=== PATIENT | female | born 1990 | race Caucasian/White ===

== ENCOUNTER 2025-03-07 22:22 | Observation (INO) | payer OTHER, SELFPAY ==
--- OUTSIDE RECORDS SUMMARY | 2024-01-30 02:20 | XMS_ITS ---
Author Organization [facility] Address [address] [place] [phone] Care Team Providers Care Director Of Manufacturing Operations Name Role Phone Talib Iglesias Primary Care Provider PrelutskyAngel Unavailable [phone] REASON FOR VISIT 2 month f/u Social History Sex Assigned At : Social History Observation Description Sex Assigned At Female Encounters Encounter Location Date Provider Diagnosis [address] [phone] 01/30/2024 Talib Iglesias Plan Of Treatment No Information Progress Notes * Muriel PETERS EDOB: [birth year] (34 yo F)Acc No.[id number]:01/30/2024 Progress Notes Patient: Muriel BANDA Provider: Milady Iglesias MD :1990 A ge:33 Y S ex:Female Date:01/30/2024 Address:[address] [place] [id number] Subjective: * Chief Complaints: * 1 . 2 month f/u. * Medical History: * Implants: Objective: * Vitals: Assessment: Plan: * Treatment: * Billing Information: * Visit Code: * Procedure Codes: Care Plan Details* * Electronic signature of Manish Iglesias M.D. on 03/08/2025 at 01:42 AM FAMILY INTERVENTION SPECIALIST Sign off status: Pending * Provider: Milady Iglesias MD Date: Generated for Jared barksdale/Zulema/Juanito on: 1 05/09/2024 01:42 AM FAMILY INTERVENTION SPECIALIST
--- NOTE | ~2025-03-07 | XR_ITS ---
Examination: XR chest 2V Clinical History: CHEST PAIN Comparison: None Technique: PA and Lateral Findings: Cardiomediastinal silhouette normal size and configuration. Lungs clear. No acute bony abnormality. IMPRESSION: 1. No acute cardiopulmonary findings. Reviewed, dictated and finalized at location R. ACTER ACTRESS
--- OUTSIDE RECORDS SUMMARY | 2025-03-07 22:25 | XMS_ITS | Encounter Summary ---
Author Organization [facility] Health Address [address] [place] [address] Care Team Providers Care Nurses' Association Executive Director Name Role Phone None, Physician Primary Care Provider Unavailabl e Reason for Visit * Reason Onset Date Comments Appointment 05/26/2022 Encounter Details Date Type Department Care Team (Late st Contact Info) Description 05/26/2022 Telephone [facility] [address] [place] [address] Catrachita Lee MD [address] [place], [place] [phone] Appointment Social History Tobacco Use Types Packs/Day Years Used Date Smoking Tobacco: Never Smokeless Tobacco: Never Alcohol Use Standard Drinks/Week Comments Not Currently 1 (1 standard drink = 0.6 oz pure alcohol) 1/2 glass wine twice during AUDIT-C Answer Date Recorded Q1: How often do you have a drink containing alc ohol? Never 05/24/2020 Average Number of Drinks Not on file 021 Frequency of Binge Drinking Not on file 05/04 Overall Financial Resource Strain (CARDIA) Answe r Date Recorded How hard is it for you to pa y for the very basics like food, housing, medical care, and heating? Not hard at all 05/22/2022 [facility] - Occupational Stress Questionnaire Answer Date Recorded Do you feel stress - tense, restless, nervous, or anxious, or unable to sleep at night because your mind is troubled all the time - these days? Not at all 05/22/2022 Hunger Vital Sign Answer Date Recorded Within the past 12 months, y ou worried that your food would run out before you got the money to buy more. Never true 05/22/19 Within the past 12 months, t he food you bought just didn't last and you didn't have money to get more. Never true 05/22/2022 PRAPARE - Transportation Answer Date Re corded In the past 12 months, has l ack of transportation kept you from medical appointments or from getting medications? No 05/04 In the past 12 months, has l ack of transportation kept you from meetings, work, or from getting things needed for daily living? No 05/22/2022 Housing Stability Vital Sign Answer Jesse e Recorded In the last 12 months, was t here a time when you were not able to pay the mortgage or rent on time? No 05/22/2022 In the last 12 months, how many places have you lived? 1 05/22/2022 In the last 12 months, was t here a time when you did not have a steady place to sleep or slept in a halfway (including now)? No 05/22/2022 [place] Depression Scale Answer Date Recorded [place] Depression Scale Total 6 05/24/2022 The thought of harming myself has occurred to me . Never 05/24/2022 Comments No Sex and Gender Information Value Date Recorded Sex Assigned at Not on file Legal Sex Female 5:39 AM CIRCULATOR Gender Identity Not on file Sexual Orientation Not on file COVID-19 Exposure Response Date Recorded In the last 10 days, have yo u been in contact with someone who was confirmed or suspected to have Coronavirus/COVID-19? No / Unsure 05/19/2022 4:23 PM CIRCULATOR documented as of this encounter Functional Status * Is person deaf or have serious hearing difficulty? Answer Date of Assessment Author No 05/22/2022 3:09 PM CIRCULATOR Pia Ledesma RN * Is person blind or have serious difficulty seeing? Answer Date of Assessment Author No 05/22/2022 3:09 PM Pia Meier RN * Does person have serious difficulty walking/climbing stairs? Answer Date of Assessment Author No 05/22/2022 3:09 PM Pia Meier RN * Does person have difficulty dressing/bathing? Answer Date of Assessment Author No 05/22/2022 3:09 PM Pia Meier RN * Does person have difficulty doing errands alone? Answer Date of Assessment Author No 05/22/2022 3:09 PM Pia Meier RN documented as of this encounter Mental Status * Does person have difficulty concentrating/remembering/making decisions? Answer Entry Date Author No 05/22/2022 3:09 PM Pia Meier RN documented in this encounter Miscellaneous Notes * Telephone Encounter - Renetta Zamudio RN - 05/26/2022 10:12 AM CIRCULATOR RN returned patient call. Patient needing to schedule PP appointment. RN scheduled patient for apptwith Dr. Lee on 06/29 @ 3:45. 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 Passing a few small clots, not bleeding through pads. Patient states that it looked like her bleeding had slowed down, but now it is more like a period. Denies increase in cramping except with nursing. RN advised to monitor for now, since bleeding can come and go during period. Bleeding precautions reviewed. Patient will call or message in with any further concerns. ULATOR * Telephone Encounter - Arlene Garcia - 05/26/2022 9:49 AM CST Pt calling to make post care but nothing is noted on time frame for appt please advise Pt has additional questions about blood clots and stated that bleeding has increased PT CB# [phone] ULATOR documented in this encounter Plan of Treatment Not on file documented as of this encounter Visit Diagnoses Not on filedocumented in this encounter Care Teams Nurses' Association Executive Director Relationship Specialty Start Date End Date None, Physician [address] [place] [id number] PCP - General 09/10/23 documented as of this encounter
--- OUTSIDE RECORDS SUMMARY | 2025-03-07 22:25 | XMS_ITS | Encounter Summary ---
Author Organization [facility] Health Address [facility] [facility] [place] [address] Care Team Providers Care Tank Hoop Bender Name Role Phone None, Physician Primary Care Provider Unavailabl e Reason for Visit * Reason Onset Date Comments Appointment 09/02/2020 Encounter Details Date Type Department Care Team (Late st Contact Info) Description 09/02/2020 Telephone [facility] [address] [place] [address] Catrachita Lee MD [address] [place] [phone] Appointment Social History Tobacco Use Types Packs/Day Years Used Date Smoking Tobacco: Never Smokeless Tobacco: Never Alcohol Use Standard Drinks/Week Comments Yes 1 (1 standard drink = 0.6 oz pur e alcohol) AUDIT-C Answer Date Recorded Q1: How often do you have a drink containing alc ohol? Never 05/24/2020 Average Number of Drinks Not on file 021 Frequency of Binge Drinking Not on file 05/04 Comments No Sex and Gender Information Value Date Recorded Sex Assigned at Not on file Legal Sex Female 5:39 AM HOME CHILD CARE PROVIDER Gender Identity Not on file Sexual Orientation Not on file documented as of this encounter Functional Status * Is person deaf or have serious hearing difficulty? Answer Date of Assessment Author No 08/25/2020:04 AM CDT Kenna Jones RN * Is person blind or have serious difficulty seeing? Answer Date of Assessment Author No 08/25/2020 2:04 AM CDT Kenna Jones RN * Does person have serious difficulty walking/climbing stairs? Answer Date of Assessment Author No 08/25/2020 2:04 AM ELT Kenna Jones RN * Does person have difficulty dressing/bathing? Answer Date of Assessment Author No 08/25/2020 2:04 AM CDT Kenna Jones RN * Does person have difficulty doing errands alone? Answer Date of Assessment Author No 08/25/2020 2:04 AM ELT Kenna Jones RN documented as of this encounter Mental Status * Does person have difficulty concentrating/remembering/making decisions? Answer Entry Date Author No 08/25/2020 2:04 AM Kenna Saul RN documented in this encounter Miscellaneous Notes * Telephone Encounter - Loan Rodriguez - 09/02/2020 8:26 AM CDT PT delivered on 08.25.20 and needs to get her [address] Lee. PT also said she got new insurance and will call to update her information when she has it CB# [phone] documented in this encounter Plan of Treatment Not on file documented as of this encounter Visit Diagnoses Not on filedocumented in this encounter Care Teams Tank Hoop Bender Relationship Specialty Start Date End Date None, Physician [address] [place] [address] PCP - General 09/10/23 documented as of this encounter
--- OUTSIDE RECORDS SUMMARY | 2025-03-07 22:25 | XMS_ITS | Clinical Summary ---
Author Organization [facility] Address [address] [place] [address] Care Team Providers Care Egg Pasteurizer Name Role Phone None, Physician Primary Care Provider Unavailabl e Source Comments [facility],non-owned Affiliates and Associated Physician Practices is amultiple site organization consisting of ambulatory clinics and hospital sitesin [place], [place], [place] and [place]. This disclosure is being madepursuant to the Care Everywhere program and may not contain all information available regarding this patient. Last updated 17.[facility] Allergies No known active allergies Medications * Be aware that medications may not be up to date on this document. Alwaysverify current medications with the patient. Vit-Fe Fumarate-FA ( VITAMIN) 27-0.8 MG tablet Take 1 (one) tablet by mouth once daily Active multivitamin daily tablet Take 1 (one) tablet by mouth daily with food Active Datto-3 Fatty Acids (fish oil) 500 MG capsule Take 500 (five hundred) mg by mouth once daily Active VITAMIN D, CHOLECALCIFEROL, PO Take 1 tablet by mouth once daily Active MAGNESIUM PO Take 1 tablet by mouth once daily Active Active Problems Problem Noted Date Diagnosed Date Well woman exam with routine gynecological exam 11/11/2024 Vaginal discharge 10/21/2024 Erosion of cervix 10/21/2024 Allergic rhinitis due to allergen 2023 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 Discussed treatment options including starting medication, pursuing therapy, or doing a combination of the two. Reviewed side effects, risks, benefits of SSRI. Would consider Fluoxetine. Discussed current data regarding risk of SSRI use during . We discussed the management of anxiety/depression during , with an emphasis on optimizing maternal well being as untreated anxiety/depression can have devastating consequences. We discussed the weak association between SSRIs and defects and the possibility of deferring treatment in the first trimester. We reviewed the risk of abstinence syndrome but emphasized that this syndrome can be easily managed by the pediatricians, and no terminal make up operator effects have ever been demonstrated. We also discussed a recent publication demonstrating a potential association between maternal use of SSRIs in late and the risk of persistent pulmonary hypertension of the (PPHN). We reviewed how studies indicated that there may be a small increase in the risk of PPHN among those who use SSRIs in late , however about 99% of women exposed to one of these medications in late will deliver an unaffected by PPHN. We discussed that the absolute risks of continuing SSRIs in are small but present and need to be weighed against the potential maternal benefits. Availability of alternative treatment like psychotherapy should also be taken into consideration. Discussed risk of exposure to drug in breast milk. Available data on the use of fluoxetine during have been encouraging and suggest that the amounts of drug to which the nursing is exposed is low and that significant complications related to exposure to antidepressants in breast milk appear to be rare. Typically very low or non-detectable levels of drug have been detected in the infant serum, and one recent report indicates that exposure to medication in breast milk does not result in clinically significant blockade of serotonin (5- HT) reuptake in infants. At this time she is not interested in medication and would prefer to pursue therapy first. Discussed adding medication at later date, should symptoms worsen. She was given list of in-network providers who provide therapy targeting disordered eating. Syncope and collapse 04/28/2022 Chest pain, unspecified type 01/27/2022 Screening for malignant neoplasm of cervix 10/07 Overview (10/12/2020): 03/19 - WNL 10/20 nilm neg hpv GERD (gastroesophageal reflux disease) Resolved Problems Problem Noted Date Diagnosed Date Resolved Date Trauma during 05/01/202208/31 Supervision of other normal , antepartum 10/27/2021 2023 Overview (05/01/2022): gbs neg gct 84, hgb 11, hiv neg syph neg O+ antibody screen neg Hgb: 12 plt 169 RPR neg Hep B, C, HIV neg x3 Rubella immune Pap normal Urine cx: neg Genetics: low risk nipt female Flu vaccine: got Tdap vaccine COVID vaccine MOD: PP contraception: Video Clerk: GAGE /pump: female Uterine contractions during 08/25/2020 06/09/2021 please notify Jesus when in labor 05/24/2020 06/09/2021 Overview (07/12/2020): Blood Type: O Rh: positive Antibody Screen: negative Hgb: 12.5 Plt: 184 Rubella Status: Immune HBSAg: negative Hep C: negative RPR: negative HIV: negative Urine Culture: neg Pap: 03/19 - WNL Chlamydia: negative Gonorrhea: negative Genetic Testing: SS - Neg GCT: 84 Tdap: 06/28/2020 GBS: Breast feeding POP (then Nuvaring) Immunizations Immunization Administration Dates Next Due FLU VACCINE TRI IIV3 SPLIT I M (FLUVIRIN) 01/22/2019 INFLUENZA VACCINE, CELL CULT URE, QUADR. (FLUCELVAX QUADRIVALENT; 6MO+) (CCIIV4) 02/02/2020 INFLUENZA VACCINE, QUADR. (F LUZONE; FLULAVAL; FLUARIX; AFLURIA QUADRIVALENT; 6MO+), 0.5 ML (IIV4) 12/01/2021 MMR 05/23/2022(Deferred: Patient Con dition) TDAP (7yrs+) 05/23/2022(),03/02/2022,06/29/19 21 Family History Medical History Relation Name Comments None Known Father CAD (Coronary Artery Disease) Maternal Grandfather Diabetes; unknown type Maternal Grandmother None Known Mother CAD (Coronary Artery Disease) Paternal Grandfather Cancer - Other Paternal Grandmother Endom etrial Cancer - Ovarian Paternal Grandmother Cancer - Breast Neg Hx Cancer - Colon Neg Hx Relation Name Status Comments Father Maternal Grandfather Maternal Grandmother Mother Paternal Grandfather Paternal Grandmother Social History Tobacco Use Types Packs/Day Years [...] and heating? Not hard at all 05/22/2022 [facility] [place] [facility] - Occupational Stress [...] money to buy more. Never true 05/22/19 23 Within the past 12 months, t he [...] place to sleep or slept in a [facility] (including now)? No 05/22/2022 [place] Depression Scale Answer Date Recorded [place] Depression Scale Total 6 05/24/2022 The thought of harming myself has occurred to me . 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 Gender Identity Not on file Sexual Orientation Not on file Last Filed Vital Signs Vital Sign Reading Time Taken Comments Blood Pressure 112/72 11/11/2024 9:50 AM CDT Pulse 72 05/24/2022 7:30 AM PROJECT FACILITATOR Temperature 36.9 C (98.4 F) 10/24/2023 2:10 PM CDT Respiratory Rate 18 05/24/2022 7:30 AM PROJECT FACILITATOR Oxygen Saturation 100% 05/24/2022 7:30 AM PROJECT FACILITATOR Inhaled Oxygen Concentration - - Weight 89.1 kg (196 lb 6.4 oz) 11/11/2024 9:50 A M CDT Height 175.3 cm (5' 9) 11/11/2024 9:50 AM CDT Body Mass Index 29 11/11/2024 9:50 AM CDT Plan of Treatment Health Maintenance Due Date Last Done Comments HEPATITIS B VACCINE (1 of 3 - 19+ 3-dose series) 09/11/2007 HPV VACCINE (1 - 3-dose SCDM series) 09/11/2015 DEPRESSION SCREENING 04/02/2024 COVID-19 VACCINE (3 - 2024-2 6 season) 2024 11/30/2020, 11/09/2020 INFLUENZA VACCINE (#1) 2024 , 02/02/2020, 01/22/2019 PAP with HPV 11/11/2029 11/11/2024, 10/07/2020 DTAP/TDAP/TD VACCINES (3 - T d or Tdap) 03/02/2032 03/02/2022, 06/28/2020 ZOSTER VACCINE (1 of 2) 2038 HEPATITIS C SCREENING Completed 09/30/2021 HIV SCREENING Completed 03/02/2022, 09/30/2021, 06/28/2020 HIB VACCINE Aged Out No longer eligi ble based on patient's age to complete this topic MENINGOCOCCAL (Group B) VACCINE SHARED DECISION-MAKING Aged Out No longer eligible based on patient's age to complete this topic MENINGOCOCCAL GROUPS A/C/Y/W VACCINE Aged Out No longer eligible b ased on patient's age to complete this topic PNEUMOCOCCAL VACCINE Aged Out No long er eligible based on patient's age to complete this topic Procedures Procedure Name Priority Date/Time Associated Diagnosis Comments HPV PANEL Routine 11/11/2024 10:21 AM CDT Well woman exam with routine gynecological exam HIV-1 HIV-2 ANTIBODY + HIV P24 AG PANEL Routine 03/02/2022 Encounter for supervision of other normal in second trimester HIV-1 HIV-2 ANTIGEN/ANTIBODY W RFLX 09/30/2021 from Last 3 Months or Most Recently Relevant to Health Maintenance Results * HPV PANEL (11/11/2024 10:21 AM CDT) High Risk HPV 16 NEGATIVE NEGATIVE 11/13/2024 6:13 AM CDT [facility] High Risk HPV 18 NEGATIVE NEGATIVE 11/13/2024 6:13 AM CDT [facility] High Risk HPV Other NEGATIVE NEGATIVE 11/13/2024 6:13 AM CDT [facility] Pathology/Cytolo gy MISCELLANEOUS SAMPLES / Unknown Collection / Unknown 11/11/2024 10:21 AM CDT 11/12/2024 10:47 AM CDT Narrative [facility] - 11/13/2024 6:13 AM CDT This test performed by Qualitative real-time Polymerase Chain Reaction (PCR). A negative result does not preclude the presence of HPV infection because results depend on adequate specimen collection, absence of inhibitors and sufficient DNA to be detected. Results should be interpreted in conjunction with other available laboratory and clinical data. This test amplifies DNA of HPV16, HPV18 and twelve other high risk types (31, 33, 35, 39, 45, 51, 52, 56, 58, 59, 66, 68) without differentiation. Nida Kimball STUDENT DEVELOPMENT DEAN-DRAFTER APPRENTICE LAB - MICROBIOLOGY ORDERAB LES Final Result [facility] [address] [place] [address], [facility] [phone] * HIV-1 HIV-2 ANTIBODY + HIV P24 AG PANEL (03/02/2022) HIV Screen 4th Generation w Reflex NON-REACT EDUARDO NON-REACT EDUARDO [facility] Comment: HIV-1 antigen and HIV-1/HIV-2 antibodies were not detected. There is no laboratory evidence of HIV infection. PLEASE NOTE: This information has been disclosed to you from records whose confidentiality may be protected by state law. If your state requires such protection, then the state law prohibits you from making any further disclosure of the information without the specific written consent of the person to whom it pertains, or as otherwise permitted by law. A general authorization for the release of medical or other information is NOT sufficient for this purpose. For additional information please refer to http://education.ripplrr inc/faq/NMJ884 (This link is being provided for informational/ educational purposes only.) The performance of this assay has not been clinically validated in patients less than 2 years old. Test Performed at: [facility] [id number] [place] [address] YINA DALE DO,MPH Blood BLOOD SPECIMEN / Unknown 03/02/2022 03/02/2022 8:45 AM PROJECT FACILITATOR Catrachita Lee MD LAB - CHEMISTRY ORDERABLES Final Result [facility] [address] [place] [address] * HIV-1 HIV-2 ANTIGEN/ANTIBODY W RFLX (09/30/2021) HIV Screen 4th Generation w Reflex NON-REACTIVE NON-REACTIV E [facility] Comment: HIV-1 antigen and HIV-1/HIV-2 antibodies were not detected. There is no laboratory evidence of HIV infection. PLEASE NOTE: This information has been disclosed to you from records whose confidentiality may be protected by state law. If your state requires such protection, then the state law prohibits you from making any further disclosure of the information without the specific written consent of the person to whom it pertains, or as otherwise permitted by law. A general authorization for the release of medical or other information is NOT sufficient for this purpose. For additional information please refer to http://Proxio.ripplrr inc/faq/JIC299 (This link is being provided for informational/ educational purposes only.) The performance of this assay has not been clinically validated in patients less than 2 years old. White Blood Cell Count 5.7 3.8 - 10.8 Thousand/uL [facility] RBC 4.32 3.80 - 5.10 Million/uL [facility] Hemoglobin 12.6 11.7 - 15.5 g/dL [facility] Hematocrit 37.2 35.0 - 45.0 % [facility] MCV 86.1 80.0 - 100.0 fL [facility] MCH 29.2 27.0 - 33.0 pg [facility] MCHC 33.9 32.0 - 36.0 g/dL [facility] RDW 12.4 11.0 - 15.0 % [facility] Platelet Count 169 140 - 400 Thousand/uL [facility] MPV 11.1 7.5 - 12.5 fL [facility] Neutrophil Absolute 3620 1500 - 7800 cells/uL [facility] Lymphocytes Absolute 1505 850 - 3900 cells/uL [facility] Absolute Monocytes 519 200 - 950 cells/uL [facility] Eosinophils Absolute 40 15 - 500 cells/uL [facility] Basophils Absolute 17 0 - 200 cells/uL [facility] Granulocytes % 63.5 % [facility] Lymphocytes % 26.4 % [facility] Monocytes % 9.1 % [facility] Eosinophils % 0.7 % [facility] Basophils % 0.3 % [facility] Hepatitis B Virus Surface Antigen NON-REACTIVE NON-REACTIV E [facility] Confirmation [facility] Hepatitis C Antibody NON-REACTIVE NON-REACTIV E [facility] Signal to Cut-Off 0.01 <1.00 [facility] Comment: HCV antibody was non-reactive. There is no laboratory evidence of HCV infection. In most cases, no further action is required. However, if recent HCV exposure is suspected, a test for HCV RNA (test code 89635) is suggested. For additional information please refer to http://Proxio.ripplrr inc/faq/GOI76e8 (This link is being provided for informational/ educational purposes only.) Rubella Antibody 1.52 Index [facility] Comment: Index Interpretation ----- <0.90 Not consistent with immunity 0.90-0.99 Equivocal > or = 1.00 Consistent with immunity The presence of rubella IgG antibody suggests immunization or past or current infection with rubella virus. Treponema pallidum Antibody EIA NEGATIVE NEGATIVE [facility] Comment: No antibodies to T. pallidum (the agent causing syphilis) were detected in the specimen. This result, however, does not exclude very recent T. pallidum infection; testing of a second specimen, collected 2-4 weeks after this specimen, is recommended if the index of suspicion for recent infection is high. Antibody Screen NO ANTIBODIES DETECTED [facility] Comment: Reference range No antibodies detected This assay is a screening test for the detection of red blood cell antibodies. The test is not to be used for pretransfusion screening or for the medical management of an alloimmunized . ABO O [facility] Rh Type RH(D) POSITIVE [facility] Comment: For additional information, please refer to http://education.Ansira/faq/NWI341 (This link is being provided for informational/ educational purposes only.) Test Performed at: [facility] [address] [place] [address] YINA DALE DO,MPH 09/30/2021 09/30/2021 2:2 7 PM CDT Shantal Cisneros MD LAB - SEROLOGY ORDERABLES Final Result Performing Organization Address City/State/[facility] Co de Phone Number [facility] [address] [place] [address] from Last 3 Months or Most Recently Relevant to Health Maintenance Insurance [facility] Advance Directives * Full Code (Latest Code Status on File) Date Activated Date Inactivated Comments 05/22/2022 3:07 PM 05/24/2022 1:23 PM * Full Code Date Activated Date Inactivated Comments 05/02/2022 1:46 AM 05/02/2022 6:22 PM * Full Code Date Activated Date Inactivated Comments 04/28/2022 10:40 AM 04/28/2022 3:58 PM * Full Code Date Activated Date Inactivated Comments 08/25/2020 12:58 AM 08/27/2020 1:22 PM * Full Code Date Activated Date Inactivated Comments 08/06/2020 11:02 AM 08/06/2020 4:23 PM Care Teams Egg Pasteurizer Relationship Specialty Start Date End Date None, Physician [address] [place] [address] PCP - General 09/10/23
--- OUTSIDE RECORDS SUMMARY | 2025-03-07 22:25 | XMS_ITS | Encounter Summary ---
Author Organization [facility] Address [address] [address] Care Team Providers Care Historical Site Guide Name Role Phone None, Physician Primary Care Provider Unavailabl e Reason for Visit * Reason Onset Date Comments Question 01/27/2022 Encounter Details Date Type Department Care Team (Late st Contact Info) Description 01/27/2022 Telephone [facility] [address] [place] [address] Catrachita Lee MD [address] [place], [place] [id number] Question Social History Tobacco Use Types Packs/Day Years [...] care, and heating? Not hard at all 01/27/2022 Hunger Vital Sign Answer Date Recorded Within the past 12 months, y ou worried that your food would run out before you got the money to buy more. Never true 01/28/20 22 Within the past 12 months, t he food you bought just didn't last and you didn't have money to get more. Never true 01/27/2022 PRAPARE - Transportation Answer Date Re corded In the past 12 months, has l ack of transportation kept you from medical appointments or from getting medications? No 01/01 In the past 12 months, has l ack of transportation kept you from meetings, work, or from getting things needed for daily living? No 01/27/2022 Housing Stability Vital Sign Answer Jesse e Recorded In the last 12 months, was t here a time when you were not able to pay the mortgage or rent on time? No 01/27/2022 In the last 12 months, how many places have you lived? 1 01/27/2022 In the last 12 months, was t here a time when you did not have a steady place to sleep or slept in a fpc (including now)? No 01/27/2022 Comments Yes Sex and Gender Information Value Date Recorded Sex Assigned at Not on file Legal Sex Female 5:39 AM VACATION PLANNER Gender Identity Not on file Sexual Orientation Not on file documented as of this encounter Functional Status * Functional and Cognitive Status Question Answer Date of Assessment Author Is person deaf or have joseph us hearing difficulty? No 01/27/2022 7:19 PM Chasidy Read RN Is person blind or have seri ous difficulty seeing? No 01/27/2022 7:19 PM Chasidy Read RN Does person have serious difficulty walking/climbing stairs? No 01/27/2022 7:19 PM Chasidy Read RN Does person have difficulty dressing/bathing? No 01/27/2022 7:19 PM Chasidy Read RN Does person have difficulty doing errands alone? No 01/27/2022 7:19 PM Chasidy Read RN Does person have difficulty concentrating/remembering/making decisions? No 01/27/2022 7:19 PM Chasidy Read RN * Is person deaf or have serious hearing difficulty? Answer Date of Assessment Author No 01/19/2022 10:44 PM CDT Milady Jacobs RN * Is person blind or have serious difficulty seeing? Answer Date of Assessment Author No 01/19/2022 10:44 PM CDT Milady Jacobs RN * Does person have serious difficulty walking/climbing stairs? Answer Date of Assessment Author No 01/19/2022 10:44 PM CDT Milady Jacobs RN * Does person have difficulty dressing/bathing? Answer Date of Assessment Author No 01/19/2022 10:44 PM CDT Milady Jacobs RN * Does person have difficulty doing errands alone? Answer Date of Assessment Author No 01/19/2022 10:44 PM ELT Milady Jacobs RN documented as of this encounter Mental Status * Does person have difficulty concentrating/remembering/making decisions? Answer Entry Date Author No 01/19/2022 10:44 PM ELT Milady Jacobs RN documented in this encounter Miscellaneous Notes * Telephone Encounter - Renetta Zamudio RN - 01/27/2022 3:50 PM CDT RN returned patient call. Patient reports that she has had intermittent headaches not relieved by tylenol and chest pain/tightness since last night. Does not have BP cuff at home. Denies swelling. Patient has had heartburn in the past and states that this does not feel like heartburn. Reports taking pepcid and prilosec daily. Denies consistent shortness of breath, but feels like she has spurts ofneeding to breathe deeply. Positive FM. RN encouraged patient to be seen at [facility] with these symptoms. Pt verbalizes understanding * Telephone Encounter - Rita Kimbrough - 01/27/2022 3:38 PM CDT Pt calling to see if she will be ok with waiting till next week for her appt to come see doctor... Went to [facility] and since being there pt is having headaches and chest pain of and on .. Please contactt # [phone] documented in this encounter Plan of Treatment Not on file documented as of this encounter Visit Diagnoses Not on filedocumented in this encounter Care Teams Historical Site Guide Relationship Specialty Start Date End Date None, Physician [address] [place] [address] PCP - General 09/10/23 documented as of this encounter
--- OUTSIDE RECORDS SUMMARY | 2025-03-07 22:25 | XMS_ITS | Clinical Summary ---
Author Organization [facility] Address [address] [place] [address] Care Team Providers Care Automation Machine Operator Name Role Phone Unavailable Primary Care Provider Unavailabl e Allergies No known active allergies Medications No known medications Active Problems Problem Noted Date Diagnosed Date Myopia of both eyes 04/05/2023 Astigmatism of both eyes 04/05/2023 Social History Tobacco Use Types Packs/Day Years Used Date Smoking Tobacco: Never Assessed Comments Unknown Sex and Gender Information Value Date Recorded Sex Assigned at Not on file Legal Sex Female 9:54 AM CDT Gender Identity Not on file Sexual Orientation Not on file Plan of Treatment Health Maintenance Due Date Last Done Comments DTAP/TDAP/TD VACCINES (1 - Tdap) 09/11/2007 HEPATITIS B VACCINES (1 of 3 - 19+ 3-dose series) 08/31 HPV/Cotest (21-29) 2009 HPV VACCINES (1 - 3-dose SCDM series) 09/11/2015 CERVICAL CANCER SCREENING 2018 HPV/Cotest (30-65) 2018 PAP SMEAR 2018 INFLUENZA VACCINE (#1) 2024
[2025-03-07 22:30] VITALS: BP 150/104; PULSE 78; RESP 17; TEMP 36.8; O2SAT 100
--- NOTE | 2025-03-07 22:30 | ECG_ITS ---
Test Date: 2025-03-08 05:54:11 Measurements Intervals [place] Rate: 58 P: 20 NE: 194 QRS: 70 QRSD: 89 T: 64 QT: 412 QTc: 406 Interpretive Statements SINUS BRADYCARDIA BORDERLINE ECG Compared to ECG 03/08/2025 02:53:21 [facility] DEGREE AV BLOCK NO LONGER PRESENT Electronically Signed On 03-08-2025 09:28:58 DANCE TEACHER by Vijay Espinoza D.O.
--- NOTE | 2025-03-07 22:34 | PC.NURSE ---
Héctor butts took EKG in triage and showed to . pt also had blood drawn in triage.
[2025-03-07 23:16] LABS: Hematocrit 36.5 % (37.0-47.0); Hemoglobin 12.1 g/dL (12.0-15.0); Immature Granulocyte Percent A 0.3 % (0-0.5); Lymphocytes Absolute Auto 2.64 K/mm3 (0.9-3.2); Mean Corpuscular HGB Conc 33.2 g/dl (32-36); Mean Corpuscular Hemoglobin 29.2 pg (26-34); Mean Corpuscular Volume 88.2 fl (80-100); Nucleated Red Blood Cells Absolute Auto 0.000 K/mm3 (0.0-0.012); Nucleated Red Blood Cells Perc 0.0 % (0.0-0.2); Platelet Count Result 196 k/mm3 (150-375); Red Blood Count 4.14 M/mm3 (4.2-5.4); White Blood Count 7.3 K/mm3 (4.5-10.0)
[2025-03-07 23:28] LABS: Alanine Aminotransferase 25 U/L (6-35); Albumin Level 4.1 g/dL (3.5-5.1); Alkaline Phosphatase 115 U/L (38-126); Anion Gap 5 mmol/L (4-12); Aspartate Amino Transferase 34 U/L (14-36); Bilirubin,Total 0.5 mg/dL (0.2-1.3); Blood Urea Nitrogen 17 mg/dL (7-17); Calcium 9.1 mg/dL (8.4-10.2); Carbon Dioxide 26 mmol/L (22-30); Chloride 105 mmol/L (98-107); Estimated CRCL calculation 78 ml/min; Estimated Glomerular Filt Rate > 60; Glucose 95 mg/dL (65-110); Lipase 106 U/L (23-300); Potassium 3.7 mmol/L (3.4-5.0); Sodium 136 mmol/L (137-145); Total Protein 7.0 g/dL (6.3-8.2)
[2025-03-07 23:36] LABS: INR 1.1; Prothrombin Time 13.9 Seconds (11.1-14.7)
[2025-03-07 23:37] VITALS: BP 136/90; PULSE 81; O2SAT 100
[2025-03-07 23:37] LABS: Partial Thromboplastin Time 27.4 Seconds (22.3-36.8)
[2025-03-07 23:40] LABS: Troponin I < 0.012 ng/mL (0.000-0.034)
[2025-03-08] VITALS (15 sets, daily range): BP systolic 97–130; BP diastolic 57–100; PULSE 55–73; RESP 14–19; TEMP 36.3–37; O2SAT 97–100; BMI 26.6
[2025-03-08] MEDS: Please add drug allergy info to patient profile. 1 EACH XX ×2 (00:36→00:42)
[2025-03-08] MEDS: ASPIRIN 81 MG CHEWABLE TABLET 324 MG PO (00:40)
--- OUTSIDE RECORDS SUMMARY | 2025-03-08 01:42 | XMS_ITS | Encounter Summary ---
Author Organization [facility] Address [address] [facility] [place] [address] Care Team Providers Care Wallpaper Consultant Name Role Phone None, Physician Primary Care Provider Unavailabl e Reason for Visit * Reason Onset Date Comments Question 01/27/2022 Encounter Details Date Type Department Care Team (Late st Contact Info) Description 01/27/2022 Telephone [facility] [address] [place] [address] Catrachita Lee MD [address] [place], [place] [id number] Question Social History Tobacco Use Types Packs/Day [...] place to sleep or slept in a penitentiary (including now)? 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 Went to [facility] and since being there pt is having headaches and chest pain of and on .. Please contactt # [phone] documented in this encounter Plan of Treatment Not on file documented as of this encounter Visit Diagnoses Not on filedocumented in this encounter Care Teams Wallpaper Consultant Relationship Specialty Start Date End Date None, Physician [address] [place] [address] PCP - General 09/10/23 documented as of this encounter
--- OUTSIDE RECORDS SUMMARY | 2025-03-08 01:42 | XMS_ITS | Clinical Summary ---
Author Organization [facility] [employer] Address [address] [place] [address] Care Team Providers Care Ripshear Operator Name Role Phone None, Physician Primary Care Provider Unavailabl e Source Comments [facility] [employer],non-owned Affiliates and Associated Physician Practices is amultiple site organization consisting of ambulatory clinics and hospital sitesin [place], [place], [place] and [place]. This disclosure is being madepursuant to the Care Everywhere program and may not contain all information available regarding this patient. Last updated 17.[facility] [employer] Allergies No known active allergies Medications * Be aware that medications may not be up to date on this document. Alwaysverify current medications with the patient. Vit-Fe Fumarate-FA ( VITAMIN) 27-0.8 MG tablet Take 1 (one) tablet by mouth once daily Active multivitamin daily tablet Take 1 (one) tablet by mouth daily with food Active Alplaus-3 Fatty Acids (fish oil) 500 MG capsule [...] easily managed by the pediatricians, and no middle or intermediate school principal effects have ever been demonstrated. 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 Not hard at all 05/22/2022 [facility] [place] of Occupat ional Health - Occupational Stress [...] place to sleep or slept in a fci (including now)? No 05/22/2022 [place] Depression Scale Answer Date Recorded [place] Depression Scale Total 6 05/24/2022 The thought of harming myself has occurred to me . Never 05/24/2022 Comments No Sex and Gender Information Value Date Recorded Sex Assigned at Not on file Legal Sex Female 5:39 AM BENCH MOLDER Gender Identity Not on file Sexual Orientation Not on file Last Filed Vital Signs Vital Sign Reading Time Taken Comments Blood Pressure 112/72 11/11/2024 9:50 AM CDT Pulse 72 05/24/2022 7:30 AM BENCH MOLDER Temperature 36.9 C (98.4 F) 10/24/2023 2:10 PM CDT Respiratory Rate 18 05/24/2022 7:30 AM BENCH MOLDER Oxygen Saturation 100% 05/24/2022 7:30 AM BENCH MOLDER Inhaled Oxygen Concentration - - Weight 89.1 [...] 16 NEGATIVE NEGATIVE 11/13/2024 6:13 AM CDT [facility] High Risk HPV 18 NEGATIVE NEGATIVE 11/13/2024 6:13 AM CDT [facility] High Risk HPV Other NEGATIVE NEGATIVE 11/13/2024 6:13 AM CDT [facility] Pathology/Cytolo gy MISCELLANEOUS SAMPLES / Unknown Collection / Unknown 11/11/2024 10:21 AM CDT 11/12/2024 10:47 AM CDT Narrative [facility] - 11/13/2024 6:13 AM CDT This [...] 59, 66, 68) without differentiation. Nida Kimball FIRE SERVICES PLUMBER-BIKE TECHNICIAN LAB - MICROBIOLOGY ORDERAB LES Final Result [facility] [address] [place] [address], [facility] [phone] * HIV-1 HIV-2 ANTIBODY + HIV P24 [...] purpose. For additional information please refer to http://education.Microstrip Planar Antennas/faq/XBZ044 (This link is being provided for informational/ educational purposes only.) The performance of this assay has not been clinically validated in patients less than 2 years old. Test Performed at: [facility] [address] [place] [address] YINA DALE DO,MPH Blood BLOOD SPECIMEN / Unknown 03/02/2022 03/02/2022 8:45 AM BENCH MOLDER Catrachita Lee MD LAB - CHEMISTRY ORDERABLES Final Result [facility] [address] [place] [address] * HIV-1 HIV-2 ANTIGEN/ANTIBODY W RFLX (09/30/2021) [...] purpose. For additional information please refer to http://NewGoTos.Microstrip Planar Antennas/faq/NIQ772 (This link is being provided for informational/ [...] a test for HCV RNA (test code 49342) is suggested. For additional information please refer to http://NewGoTos.Micro[employer]/faq/PRM03d2 (This link is being provided for informational/ [...] Comment: For additional information, please refer to http://education.TextbookTime.com Textbook Time/faq/MNZ852 (This link is being provided for informational/ educational purposes only.) Test Performed at: [facility] [address] [place] [address] YINA DALE DO,MPH 09/30/2021 09/30/2021 2:2 7 PM CDT Shantal Cisneros MD LAB - SEROLOGY ORDERABLES Final Result Performing Organization Address City/State/[facility] Co de Phone Number [facility] [address] [place] [address] from Last 3 Months or Most Recently Relevant to Health Maintenance Insurance [facility] Advance Directives * Full Code [...] 11:02 AM 08/06/2020 4:23 PM Care Teams Ripshear Operator Relationship Specialty Start Date End Date None, Physician [address] [place] [address] PCP - General 09/10/23
--- OUTSIDE RECORDS SUMMARY | 2025-03-08 01:42 | XMS_ITS | Encounter Summary ---
Author Organization [facility] Address [address] [facility] [place] [address] Care Team Providers Care Dental Surgeon Name Role Phone None, Physician Primary Care Provider Unavailabl e Reason for Visit * Reason Onset Date Comments Appointment 05/26/2022 Encounter Details Date Type Department Care Team (Late st Contact Info) Description 05/26/2022 Telephone [facility] [address] [place] [address] Catrachita Lee MD [address] [place], [place] [id number] Appointment Social History Tobacco Use Types Packs/Day [...] and heating? Not hard at all 05/22/2022 [facility] [place] of Occupat ional Health - Occupational Stress [...] in a halfway (including now)? No 05/22/2022 [place] Depression Scale Answer Date Recorded [place] Depression Scale Total 6 05/24/2022 The thought of harming myself has occurred to me . 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 No / Unsure 05/19/2022 4:23 PM CHIP LOFT WORKER documented as of this encounter Functional Status * Is person deaf or have serious hearing difficulty? Answer Date of Assessment Author No 05/22/2022 3:09 PM CHIP LOFT WORKER Pia Ledesma RN * Is person blind [...] Renetta Zamudio RN - 05/26/2022 10:12 AM CHIP LOFT WORKER RN returned patient call. Patient needing to schedule PP appointment. RN scheduled patient for apptwith Dr. Lee on 06/29 @ 3:45. Patient also reports that her bleeding seemed to vegetable picker a bit overnight. Passing a few small [...] or message in with any further concerns. LOFT WORKER * Telephone Encounter - Arlene Garcia - 05/26/2022 9:49 AM CST Pt calling to make post care but nothing is noted on time frame for appt please advise Pt has additional questions about blood clots and stated that bleeding has increased PT CB# [phone] LOFT WORKER documented in this encounter Plan of Treatment Not on file documented as of this encounter Visit Diagnoses Not on filedocumented in this encounter Care Teams Dental Surgeon Relationship Specialty Start Date End Date None, Physician [address] [place] [id number] PCP - General 09/10/23 documented as of this encounter
--- OUTSIDE RECORDS SUMMARY | 2025-03-08 01:42 | XMS_ITS | Encounter Summary ---
Author Organization [facility] Health Address [facility] [facility] [place] [address] Care Team Providers Care Fashion Styling Intern Name Role Phone None, Physician Primary Care Provider Unavailabl e Reason for Visit * Reason Onset Date Comments Appointment 09/02/2020 Encounter Details Date Type Department Care Team (Late st Contact Info) Description 09/02/2020 Telephone [facility] [address] [place] [address] Catrachita Lee MD [address] [place] [address] [phone] Appointment Social History Tobacco Use Types Packs/Day [...] on file Legal 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
--- OUTSIDE RECORDS SUMMARY | 2025-03-08 01:42 | XMS_ITS | Patient Health Record ---
Author Organization [email or web address] Address [address] [place] [address] Care Team Providers Care Trucker Hand Name Role Phone Talib Iglesias Primary Care Provider [phone] SanjuAngel cristobal Unavailable [phone] Allergies No Known Allergies Reason For Referral No Information Immunizations Vaccine Route Administration Date Status Comme nts Flulaval IM Intramuscular 01/22/2019 Administered Social History Tobacco Use: Social History Observation Description Date Details (start date - stop date) Never Smoker NA - NA Sex Assigned At : Social History Observation Description Sex Assigned At Female Drugs Question Answer Notes Illicit Drug use? Yes Tobacco Use/Smoking Question Answer Notes Smoking Status: nonsmoker Alcohol Screen (Audit-C) Question Answer Notes Did you have a drink contain ing alcohol in the past year? Yes How often did you have a dri nk containing alcohol in the past year? 2 to 3 times a week (3 points) How many drinks did you have on a typical day when you were drinking in the past year? 3 or 4 drinks (1 point) How often did you have 6 or more drinks on one occasion in the past year? Monthly (2 points) Points 6 Interpretation Positive Sexual History Question Answer Notes Had sex in the past 12 months (vaginal, oral, or anal)? Yes with Men only Use protection? No Have you ever had a Sexually transmitted disease ? No Problems Problem Type SNOMED Code ICD Code Onset Dates Problem Status W/U Status Risk Notes Problem Metrorrhagia (65076513) Metrorrhagia (N92.1) Active confirmed Problem Allergic rhinitis (36435403) Seasonal allergic rhinitis due to other allergic trigger (J30.89) Active confirmed Problem Paresthesia (17258363) Paresthesia (R20.2) Active confirmed Problem Eating disorder (37374988) Eating disorder, unspecified type (F50.9) Active confirmed Plan Of Treatment No Information Insurance Providers Payer Name Payer Address Payer Phone Subscriber Number Group Number Insured Name Patient Relationship to Insured Coverage Start Date Coverage End Date [facility] [address] [place] [address] [id number] Muriel Peters Self - patient is the insured Medical (General) History Medical History History ICD Code exercise-induced asthma concussion viral meningitis Surgical History Surgery Date(Month/Year) appendectomy 05/30/18 Hospitalization History Reason Date(Month/Year) viral meningitis
--- OUTSIDE RECORDS SUMMARY | 2025-03-08 01:43 | XMS_ITS | Clinical Summary ---
Author Organization [facility] Address [address] [place] [address] Care Team Providers Care Experimental Electronics Developer Name Role Phone Unavailable Primary Care Provider [...]
[2025-03-08 02:11] LABS: Troponin I < 0.012 ng/mL (0.000-0.034)
--- NOTE | 2025-03-08 02:14 | ED_ITS ---
HPI - Chest Pain General Chief Complaint: Chest Pain Stated Complaint: chest pain Time Seen by Provider: 03/08/25 00:42 Source: patient Mode of arrival: ambulatory Limitations: no limitations History of Present Illness HPI narrative: Patient is a 34-year-old female presents to the emergency department complaining of palpitations, heart rates packing to the 200s, chest is come, heartburn, elevated blood pressure. Patient notes that she was working out around about 5:00 p.m. doing some overhead lifting when suddenly she felt like her heart was going to beat out of her chest going really fast in her Apple watch was saying that her heart rate was in the 200s. Patient notes that her heart rate is typically in the 50s. Denies any history of abnormal heart rhythms. Denies any new stimulant intake her caffeine intake. S that she had a couple more episodes tonight and has not had any since she has been here. Patient notes that the palpitations and the heart rate in the 200s went away quickly. Denies feeling lightheaded with it. Notes she is having some mild chest discomfort which feels like a squeezing on the left side of her chest and dull sensation on the right side of her chest, was initially constant for about 3 hours and has now been just coming and going, feels like the aspirin she got made it better. Denies any history of heart disease. Has never seen a fireworks display specialist. Has never worn a Holter monitor. Denies any nausea, vomiting, diarrhea, urinary discomfort, focal weakness, numbness, fever, cough, new or change medications, family history of heart disease at a young age. Denies being a diabetic or a smoker or having high blood pressure or taking cholesterol medications. Related Data Home Medications ?Medication ?Instructions ?Recorded ?Confirmed ?Last Taken ?Type No Home Medications 03/08/25 03/08/25 U nknown History Allergies Allergy/AdvReac Type Severity Reaction Status Date / Time No Known Allergies Allergy Verified 03/08/25 04:58 Review of Systems 2 Review of Systems: A 10 system review of systems was completed on the patient and is negative except for what is stated in the HPI. Nursing and ancillary documentation was reviewed. [facility] Family History Family History Grandparent Diabetes mellitus Family history of cardiovascular disease Acute myocardial infarction, Onset Age: 70 Carcinoma of colon Family history of Alzheimer's disease Family history of aortic aneurysm Family history of malignant melanoma Family history of malignant neoplasm of uterus Mother Family history of elevated blood lipids Other Depression No family history of malignant neoplasm Social History Social History Smoking status: Never smoker Alcohol intake: current Drinks per week: 2 Substance use: never Substance use type: does not use Lack of Transportation: No Lack of Food: Never True Current Housing: I Have Housing Concerned About Future Housing: No Difficulty Paying Gas/Electric Bills: No Difficulty Paying for Meds: No Currently Unemployed: No Education: Master's Degree or Higher Difficulty w/ Childcare or Family Care: No Spiritual care concerns: No Exam 2 Narrative: CONST: No acute distress. Well nourished. HENMT: Head is normocephalic and atraumatic. Moist mucous membranes. No posterior oropharynx erythema. EYES: No scleral icterus. No conjunctival injection or pallor. PERRL. NECK: No meningeal signs. RESP: Able to speak in full sentences. Normal respiratory effort. CTAB. CARDIO: Regular rate. Regular rhythm. 2+ DP and radial pulses bilaterally. GI: Nondistended. No tenderness to palpation. Soft. : No CVA tenderness to palpation. SKIN: No rashes or lesions noted on exposed skin. NEURO: Oriented x3. Moves all extremities. EXTREM/MSK/BACK: No pedal edema. PSYCH: Normal affect. Course Vital Signs Vital signs: Vital Signs Temperature 98.3 F 03/07/25 22:30 Pulse Rate 78 03/07/25 22:30 Respiratory Rate 17 03/07/25 22:30 Blood Pressure 150/104 H 03/07/25 22:30 Pulse Oximetry 100 03/07/25 22:30 Oxygen Delivery Room Air 03/07/25 22:30 Temperature 98.0 F 03/08/25 06:23 Pulse Rate 57 L 03/08/25 06:23 Respiratory Rate 14 03/08/25 06:23 Blood Pressure 115/72 03/08/25 06:23 Pulse Oximetry 100 03/08/25 06:23 Oxygen Delivery Room Air 03/08/25 00:29 [facility] Narrative Medical decision making narrative: Patient presents with the above complaint. Initial vitals are remarkable for no significant abnormalities. Physical examination as noted above. Plan discussed: laboratory analysis, EKG, imaging. Patient ordered ASA, continuous cardiac monitoring, continuous pulse oximetry. Patient still having persistent chest discomfort. Given the abnormal EKG and persistent chest discomfort and concerning history discussed plan for admission for further cardiac evaluation. Patient demonstrates understanding and agreeable plan of care. Spoke with the hospitalist on-call who has accepted the patient for admission. Differential Diagnosis Differential Diagnosis: Dysrhythmia, ACS, pulmonary embolism, metabolic derangement, electrolyte derangement, thyroid dysfunction, myocarditis, pericarditis, dehydration. Lab Data MDM Lab Attestation statement: I personally reviewed the patient's lab results. Lab results narrative: CBC is without any significant abnormalities. Coags are within normal limits. Comprehensive metabolic panel reveals a sodium 136. Troponin is less than 0.012. Repeat troponin is less than 0.012. Lipase 106. D-dimer 0.33. BNP is 44. TSH is 4.47. 03/07/25 23:09 03/07/25 23:09 Labs: Lab Results 03/07/25 03/07/25 03/08/25 Range/Units 02:14 23:09 01:40 WBC 7.3 (4.5-10.0) K/mm3 RBC 4.14 L (4.2-5.4) M/mm3 Hgb 12.1 (12.0-15.0) g/dL Hct 36.5 L (37.0-47.0) % MCV 88.2 (80-100) fl MCH 29.2 (26-34) pg MCHC 33.2 (32-36) g/dl RDW 12.6 (11.5-14.5) % Plt Count 196 (150-375) k/mm3 MPV 10.0 (7.4-10.4) fl Immature Gran % (Auto) 0.3 (0-0.5) % Neut % (Auto) 54.1 (45.5-73.1) % Lymph % (Auto) 36.0 (18.3-44.2) % [place] % (Auto) 7.9 (2.6-8.5) % Eos % (Auto) 1.2 (0-4.4) % Baso % (Auto) 0.5 (0.2-1.2) % Lymph # (Auto) 2.64 (0.9-3.2) K/mm3 [place] # (Auto) 0.6 (0.1-0.6) K/mm3 Eos # (Auto) 0.1 (0-0.3) K/mm3 Baso # (Auto) 0.0 (0.0-0.1) K/mm3 Abs Immat Gran (auto) 0.02 (0.00-0.031) K/mm3 Absolute Neuts (auto) 4.0 (1.3-6.7) K/mm3 Absolute Nucleated RBC 0.000 (0.0-0.012) K/mm3 Nucleated RBC % 0.0 (0.0-0.2) % PT 13.9 (11.1-14.7) Seconds INR 1.1 APTT 27.4 (22.3-36.8) Seconds D-Dimer 0.33 (<0.48) ug/mL Sodium 136 L (137-145) mmol/L Potassium 3.7 (3.4-5.0) mmol/L Chloride 105 (98-107) mmol/L Carbon Dioxide 26 (22-30) mmol/L Anion Gap 5 (4-12) mmol/L BUN 17 (7-17) mg/dL Creatinine 0.91 (0.7-1.0) mg/dL Estim Creat Clear Calc 78 ml/min Estimated GFR > 60 (59 - ) Glucose 95 (65-110) mg/dL Calcium 9.1 (8.4-10.2) mg/dL Total Bilirubin 0.5 (0.2-1.3) mg/dL AST 34 (14-36) U/L ALT 25 (6-35) U/L Alkaline Phosphatase 115 (38-126) U/L Troponin I < 0.012 < 0.012 (0.000-0.034) ng/mL NT-Pro-B Natriuret Pep 44 (19.9-100) pg/mL Total Protein 7.0 (6.3-8.2) g/dL Albumin 4.1 (3.5-5.1) g/dL Lipase 106 (23-300) U/L TSH (Reflex) 4.470 (0.465-4.68) uIU/mL Free T4 0.96 (0.78-2.19) ng/dL Total T3 1.00 (0.82-1.58) NG/ML Imaging Data Attestation: I personally reviewed and interpreted this imaging study as follows: My impression: No acute cardiopulmonary abnormality. Radiologist's impression: ITS Impressions Chest X-Ray 03/08/25 06:42 IMPRESSION: 1. No acute cardiopulmonary findings. ECG Data EKG #1: Attestation: I personally reviewed and interpreted this ECG as follows: ECG completion date: 03/08/25 ECG completion time: 02:53 Interpretation: Rate of 57, rhythm is ectopic atrial bradycardia with first-degree AV block, left posterior fascicular block, Q-waves are present in leads 1 and aVL, T-wave inversions in leads 1 in aVL, no overt ST elevation or depressions, no old EKG on file for comparison. Discharge Plan Discharge Clinical Impression: Chest pain, Palpitations Patient Disposition: Still a Patient Condition: Stable Time of Disposition: 03:53 Quality HEART score for chest pain patients History: moderately suspicious ECG: non specific repolarization disturbance/LBTB/PM Age: < or = to 45 years Risk factors: 1 or 2 risk factors Troponin: < or = to 1x normal limit Heart score: 3
[2025-03-08 02:42] LABS: NT Pro B Type Natriuretic Pept 44 pg/mL (19.9-100)
[2025-03-08 03:06] LABS: Thyroid Stimulating Hormone Reflex 4.470 uIU/mL (0.465-4.68)
[2025-03-08 03:40] LABS: Free T4 Free Thyroxine Reflex 0.96 ng/dL (0.78-2.19)
[2025-03-08 04:24] LABS: Total Triiodothyronine (T3) 1.00 NG/ML (0.82-1.58)
--- NOTE | 2025-03-08 04:51 | WPCEDHO ---
ED Hand Off Checklist All vitals saved:YES IV Site documented: YES All med administrations documented: YES Triage Note Triage Note patient states she was working 03/08/25 00:29 out yesterday and her HR spiked to 200 and her heart felt like it was beating out my chest. 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 BP at home was 130/90 Allergies No Known Allergies Allergy (Verified 03/08/25 00:37) Family History Grandparent Diabetes mellitus Family history of cardiovascular disease Acute myocardial infarction Carcinoma of colon Family history of Alzheimer's disease Family history of aortic aneurysm Family history of malignant melanoma Family history of malignant neoplasm of uterus Mother Family history of elevated blood lipids Other Depression No family history of malignant neoplasm Active Medications including assessments/comments Sodium Chloride (Normal Saline Iv) 1,000 mls @ 125 mls/hr IV CONT .Q8H [facility] Last Admin: 03/08/25 04:14 Dose: Not Given Documented By: GUANAKO Non-Admin Reason: See Administration Comments Administered/Completed Medications Discontinued Medications Aspirin (Aspirin 81 Mg Chewable Tablet) 324 mg PO ONCE STA Stop: 03/07/25 22:30 Last Admin: 03/08/25 00:40 Dose: 324 mg Documented By: GUANAKO Miscellaneous Information (Please Add Drug Allergy Info To Patient Profile.) 1 each XX CLARIFY [facility] Stop: 04/06/25 00:00 Last Admin: 03/08/25 00:42 Dose: 1 each Documented By: Admin: 03/08/25 00:36 Dose: 1 each Documented By: GUANAKO Notes 03/07/25 22:34 (created 03/08/25 02:50) Nurse Note by Alesia Gamez process mold technician took EKG in triage and showed to . pt also had blood drawn in triage. Initialized on 03/08/25 02:50 - END OF NOTE Interventions/Assessments IV / Saline Lock, Insert Start: 03/07/25 22:30 Freq: STAT Status: Active Protocol: Document 03/08/25 04:48 GUANAKO (Rec: 03/08/25 04:48 GUANAKO [id number]) IV Assessment Peripheral Access Left Antecubital IV Catheter Access Initiated IV Insertion Date 03/08/25 IV Insertion Time 04:48 Catheter Gauge 18 IV Insertion 1 Attempts Ultrasound Used for No Placement IV Site Assessment WNL IV Care and WNL Maintenance PA: Cardiovascular Assessment Start: 03/07/25 22:24 Freq: Status: Active Protocol: Document 03/08/25 00:29 JJJ (Rec: 03/08/25 00:34 JJ [id number]) Cardiovascular Assessment Cardiovascular Chest Pain Symptoms Chest Pain Assessment Chest Pain Intensity 1 Chest Pain Location R and L side of chest Description and Dull,Squeezing Symptoms Chest Pain Duration Less than 15 Minutes Chest Pain Radiation Back Jugular Vein None Distention PA: Respiratory Assessment Start: 03/07/25 22:24 Freq: Status: Active Protocol: Document 03/08/25 00:29 JJJ (Rec: 03/08/25 00:34 [facility] [id number]) Respiratory Assessment Symptoms None Effort Normal Pattern Regular Depth Normal Adult Capillary Normal/Less than 2 Seconds Refill Cough Description None Oxygen Delivery Oxygen Delivery Room Air Last Vital Signs Temperature 98.2 F 03/08/25 04:48 Pulse Rate 64 03/08/25 04:48 Respiratory Rate 19 03/08/25 04:48 Pulse Oximetry 100 03/08/25 04:48 Blood Pressure 112/85 03/08/25 04:48 Blood Pressure Mean 94 03/08/25 04:48 Blood Pressure Position Supine 03/08/25 04:48 Oxygen Delivery Room Air 03/08/25 00:29 Weight 84.1 kg 03/07/25 22:30 Last Result - Abnormals Only RBC 4.14 M/mm3 (4.2-5.4) L 03/07/25 23:09 Hct 36.5 % (37.0-47.0) L 03/07/25 23:09 Sodium 136 mmol/L (137-145) L 03/07/25 23:09 Most Recent Suicide Severity Rating Suicide Severity Rating NO RISK INDICATED 03/08/25 00:34
--- NOTE | 2025-03-08 04:57 | ADMGEN ---
This patient, Muriel Peters, was admitted to IMU Room 210-01. Patient/family oriented to hospital policies and general routines including ID bracelet, bed and alarms, visiting hours, pain management, procedures, bathroom and other care routines, personal items, smoking policy, room service/diet, and visiting hours. Information on how to activate the Rapid Response Team has been discussed. Patient/Family are encouraged to report perceived risks to care and to ask questions if they do not understand what they are told or what they should do.
--- NOTE | 2025-03-08 05:44 | ECG_ITS ---
Test Date: 2025-03-08 02:53:21 Measurements Intervals [place] Rate: 57 P: 183 NC: 210 QRS: 156 QRSD: 89 T: 158 QT: 397 QTc: 389 Interpretive Statements SINUS RHYTHM WITH FIRS DEGREE AV BLOCK LIMB LEAD REVERSAL BORDERLINE ECG No previous ECG available for comparison Electronically Signed On 03-08-2025 09:15:42 [employer] SCI[employer] by Vijay Espinoza D.O.
[2025-03-08 06:04] LABS: Troponin I < 0.012 ng/mL (0.000-0.034)
--- NOTE | 2025-03-08 12:33 | P.CONCA_ITS ---
Assessment and Plan Assessment and plan (1) Chest pain: Code(s): R07.9 - Chest pain, unspecified Status: Acute Plan Atypical chest pain Palpitation possible supraventricular tachycardia Plan Exercise EKG in a.m. Event monitor and follow-up in the clinic History of Present Illness History of Present Illness Consult date/time: 03/08/25 12:33 Reason For Visit: Chest pain Narrative: 34-year-old female patient presents to the hospital was acute onset rapid heartbeats happened during exercise. Heart rate increased to 200 associated with palpitation and chest discomfort squeezing radiating to lower part of the chest and will symptoms was recurrent with increased heart rate. Today she is complaining of aching chest discomfort and heartburn. She was admitted to hospital for workup for chest pain has been negative cardiac enzymes no dynamic EKG changes and no arrhythmia telemetry Review of Systems 2 Review of Systems: All systems reviewed & are unremarkable except as noted in HPI and below PMFSH Family History Family History Grandparent Diabetes mellitus Family history of cardiovascular disease Acute myocardial infarction, Onset Age: 70 Carcinoma of colon Family history of Alzheimer's disease Family history of aortic aneurysm Family history of malignant melanoma Family history of malignant neoplasm of uterus Mother Family history of elevated blood lipids Other Depression No family history of malignant neoplasm Social History Social History Smoking status: Never smoker Alcohol intake: current Drinks per week: 2 Substance use: never Substance use type: does not use Lack of Transportation: No Lack of Food: Never True Current Housing: I Have Housing Concerned About Future Housing: No Difficulty Paying Gas/Electric Bills: No Difficulty Paying for Meds: No Currently Unemployed: No Education: Master's Degree or Higher Difficulty w/ Childcare or Family Care: No Spiritual care concerns: No Meds Home Medications and Allergies Home Medications ?Medication ?Instructions ?Recorded ?Confirmed ?Type No Home Medications 03/08/25 03/08/25 H istory Allergies Allergy/AdvReac Type Severity Reaction Status Date / Time No Known Allergies Allergy Verified 03/08/25 04:58 Vital Signs Vital Signs - 24 hr 03/07/25 22:30 03/07/25 23:37 03/08/25 00:29 Temperature 36.8 C Pulse Rate 78 81 68 Respiratory Rate 17 17 Blood Pressure 150/104 H 136/90 130/100 H Pulse Oximetry 100 100 100 Oxygen Delivery Room Air 03/08/25 00:29 03/08/25 04:12 03/08/25 04:48 Temperature 36.8 C Pulse Rate 61 64 Respiratory Rate 16 19 Blood Pressure 115/88 112/85 Pulse Oximetry 100 100 Oxygen Delivery Room Air 03/08/25 06:00 03/08/25 06:23 03/08/25 08:00 Temperature 36.7 C 36.8 C Pulse Rate 58 L 57 L 58 L Respiratory Rate 14 18 Blood Pressure 115/72 111/66 Pulse Oximetry 100 99 Oxygen Delivery 03/08/25 08:00 03/08/25 08:00 03/08/25 10:00 Temperature Pulse Rate 68 68 73 Respiratory Rate 18 Blood Pressure Pulse Oximetry 99 Oxygen Delivery Room Air 03/08/25 11:48 Temperature 37.0 C Pulse Rate 63 Respiratory Rate 16 Blood Pressure 113/57 L Pulse Oximetry 98 Oxygen Delivery Exam 2 Const: General: comfortable and no acute distress Other: Able to lie flat HENMT: Face/Nose/Sinus: Normal nares present and no epistaxis Mouth: Yes moist mucous membranes Eyes: Sclera: sclerae normal Pupils: Equal, round and reactive pupils present Neck: Neck: supple and no JVD Carotids: no bruits Resp: Auscultation: clear to auscultation bilaterally and lung sounds not diminished Other: No chest wall tenderness Cardio: Rate: regular rate Rhythm: regular rhythm Heart sounds: no gallops, no murmurs and no rubs GI: GI Palp: Yes Soft to palpation and No Tenderness to palpation present (GI) Auscultation: normal bowel sounds Skin: General skin exam: normal color, rashes and/or lesions noted and no erythema Other: Warm Neuro: Cranial nerves: Yes Equal, round and reactive pupils present Speech: normal speech Other: No obvious focal deficit or facial asymmetry Extrem: General: no edema Other: Normal capillary refills Intact distal pulses. Results Labs and Meds 03/07/25 23:09 03/07/25 23:09 Lab results: Cardiac Enzymes 03/07/25 03/08/25 03/08/25 Range/Units 23:09 01:40 05:26 AST 34 (14-36) U/L Troponin I < 0.012 < 0.012 < 0.012 (0.000-0.034) ng/mL Coagulation 03/07/25 Range/Units 23:09 PT 13.9 (11.1-14.7) Seconds APTT 27.4 (22.3-36.8) Seconds CBC 03/07/25 Range/Units 23:09 WBC 7.3 (4.5-10.0) K/mm3 RBC 4.14 L (4.2-5.4) M/mm3 Hgb 12.1 (12.0-15.0) g/dL Hct 36.5 L (37.0-47.0) % Plt Count 196 (150-375) k/mm3 Lymph # (Auto) 2.64 (0.9-3.2) K/mm3 [place] # (Auto) 0.6 (0.1-0.6) K/mm3 Eos # (Auto) 0.1 (0-0.3) K/mm3 Baso # (Auto) 0.0 (0.0-0.1) K/mm3 Comprehensive Metabolic Panel 03/07/25 Range/Units 23:09 Sodium 136 L (137-145) mmol/L Potassium 3.7 (3.4-5.0) mmol/L Chloride 105 (98-107) mmol/L Carbon Dioxide 26 (22-30) mmol/L BUN 17 (7-17) mg/dL Creatinine 0.91 (0.7-1.0) mg/dL Glucose 95 (65-110) mg/dL Calcium 9.1 (8.4-10.2) mg/dL AST 34 (14-36) U/L ALT 25 (6-35) U/L Alkaline Phosphatase 115 (38-126) U/L Total Protein 7.0 (6.3-8.2) g/dL Albumin 4.1 (3.5-5.1) g/dL Intake and Output 03/07/25 03/08/25 03/08/25 23:59 07:59 15:59 Output Total 400 Balance -400 Output: Urine 400 Patient Weight 03/08/25 23:59 Weight 81.9 kg
[2025-03-08] MEDS: ACETAMINOPHEN 325 MG TABLET 650 MG PO (13:37)
[2025-03-08] MEDS: IBUPROFEN 400 MG TABLET PO (16:06)
[2025-03-08] MEDS: METOCLOPRAMIDE HCL INJ 10 MG/2 ML VIAL IV PUSH (16:07)
--- NOTE | 2025-03-08 16:50 | PM.IMHP2 ---
H&P: HPI History of Present Illness Date/Time: 03/08/25 16:50 Chief Complaint: Chest Pain Narrative: ER-HPI narrative: Patient is a 34-year-old female presents to the emergency department complaining of palpitations, heart rates packing to the 200s, chest is come, heartburn, elevated blood pressure. Patient notes that she was working out around about 5:00 p.m. doing some overhead lifting when suddenly she felt like her heart was going to beat out of her chest going really fast in her Apple watch was saying that her heart rate was in the 200s. Patient notes that her heart rate is typically in the 50s. Denies any history of abnormal heart rhythms. Denies any new stimulant intake her caffeine intake. S that she had a couple more episodes tonight and has not had any since she has been here. Patient notes that the palpitations and the heart rate in the 200s went away quickly. Denies feeling lightheaded with it. Notes she is having some mild chest discomfort which feels like a squeezing on the left side of her chest and dull sensation on the right side of her chest, was initially constant for about 3 hours and has now been just coming and going, feels like the aspirin she got made it better. Denies any history of heart disease. Has never seen a refrigeration engineering teacher. Has never worn a Holter monitor. Denies any nausea, vomiting, diarrhea, urinary discomfort, focal weakness, numbness, fever, cough, new or change medications, family history of heart disease at a young age. Denies being a diabetic or a smoker or having high blood pressure or taking cholesterol medications. Currently denies any CP or palpitation, complaints of BRUCE, will give tylenol, to further evaluate will do treadmill exercise stress test in the morning, and cardia ECHO, seen by the refrigeration engineering teacher and further recommendation to follow. Review of Systems Review of Systems: All systems reviewed & are unremarkable except as noted in HPI and below [facility] Family History Family History Grandparent Diabetes mellitus Family history of cardiovascular disease Acute myocardial infarction, Onset Age: 70 Carcinoma of colon Family history of Alzheimer's disease Family history of aortic aneurysm Family history of malignant melanoma Family history of malignant neoplasm of uterus Mother Family history of elevated blood lipids Other Depression No family history of malignant neoplasm Social History Social History Smoking status: Never smoker Alcohol intake: current Drinks per week: 2 Substance use: never Substance use type: does not use Lack of Transportation: No Lack of Food: Never True Current Housing: I Have Housing Concerned About Future Housing: No Difficulty Paying Gas/Electric Bills: No Difficulty Paying for Meds: No Currently Unemployed: No Education: Master's Degree or Higher Difficulty w/ Childcare or Family Care: No Spiritual care concerns: No Meds Home Medications and Allergies Home Medications ?Medication ?Instructions ?Recorded ?Confirmed ?Type No Home Medications 03/08/25 03/08/25 History Allergies Allergy/AdvReac Type Severity Reaction Status Date / Time No Known Allergies Allergy Verified 03/08/25 04:58 Vital Signs Vital Signs - 24 hr 03/07/25 22:30 03/07/25 23:37 03/08/25 00:29 Temperature 36.8 C Pulse Rate 78 81 68 Respiratory Rate 17 17 Blood Pressure 150/104 H 136/90 130/100 H Pulse Oximetry 100 100 100 Oxygen Delivery Room Air 03/08/25 00:29 03/08/25 04:12 03/08/25 04:48 Temperature 36.8 C Pulse Rate 61 64 Respiratory Rate 16 19 Blood Pressure 115/88 112/85 Pulse Oximetry 100 100 Oxygen Delivery Room Air 03/08/25 06:00 03/08/25 06:23 03/08/25 08:00 Temperature 36.7 C 36.8 C Pulse Rate 58 L 57 L 58 L Respiratory Rate 14 18 Blood Pressure 115/72 111/66 Pulse Oximetry 100 99 Oxygen Delivery 03/08/25 08:00 03/08/25 08:00 03/08/25 10:00 Temperature Pulse Rate 68 68 73 Respiratory Rate 18 Blood Pressure Pulse Oximetry 99 Oxygen Delivery Room Air 03/08/25 11:48 03/08/25 12:00 03/08/25 12:00 Temperature 37.0 C Pulse Rate 63 65 65 Respiratory Rate 16 16 Blood Pressure 113/57 L Pulse Oximetry 98 98 Oxygen Delivery Room Air 03/08/25 14:00 03/08/25 15:53 03/08/25 16:00 Temperature 36.7 C Pulse Rate 63 60 62 Respiratory Rate 16 Blood Pressure 110/62 Pulse Oximetry 98 Oxygen Delivery Room Air Exam Narrative: Patient is comfortable, NAD HEENT: eyes are clear and none icteric LUNGS:CTA HEART: RR S1S2 ABD: BS+, Soft and nontender Lower extremities: no edema SKIN: nonjaundiced Neuro: grossly intact. Results Labs Labs: Short CBC 03/07/25 Range/Units 23:09 WBC 7.3 (4.5-10.0) K/mm3 Hgb 12.1 (12.0-15.0) g/dL Hct 36.5 L (37.0-47.0) % Plt Count 196 (150-375) k/mm3 BMP 03/07/25 23:09 Sodium 136 L Potassium 3.7 Chloride 105 Carbon Dioxide 26 BUN 17 Creatinine 0.91 Glucose 95 Calcium 9.1 Cardiac Enzymes 03/07/25 03/08/25 03/08/25 Range/Units 23:09 01:40 05:26 Troponin I < 0.012 < 0.012 < 0.012 (0.000-0.034) ng/mL Liver Function 03/07/25 Range/Units 23:09 Total Bilirubin 0.5 (0.2-1.3) mg/dL AST 34 (14-36) U/L ALT 25 (6-35) U/L Alkaline Phosphatase 115 (38-126) U/L Albumin 4.1 (3.5-5.1) g/dL Assessment and Plan Assessment and plan (1) Chest pain: Code(s): R07.9 - Chest pain, unspecified Status: Acute (2) Palpitations: Code(s): R00.2 - Palpitations Status: Acute Plan Currently denies any CP or palpitation, complaints of BRUCE, will give tylenol, to further evaluate will do treadmill exercise stress test in the morning, and cardia ECHO, seen by the refrigeration engineering teacher and further recommendation to follow.
[2025-03-08] MEDS: SODIUM CHLORIDE 0.9% IV 1,000 ML 125 ML IV CONT (20:35)
[2025-03-09] VITALS (11 sets, daily range): BP systolic 100–122; BP diastolic 44–75; PULSE 45–96; RESP 16–18; TEMP 36.4–36.9; O2SAT 98–100
--- NOTE | 2025-03-09 | EST_ITS ---
Patient Info Name: Muriel Peters Age: 34 years : 1990 Gender: Female Ht: 69 in Wt: 180 lbs BSA: 2.01 m2 HR: 61 bpm BP: 119 / 77 mmHg Exam Date: 03/09/2025 6:24 AM Patient Status: I Admit Date: 03/08/2025 Exam Type: CA stress test treadmill An exercise stress test was performed. Staff Referring Physician: Ananth Kevin MD Attending Provider: Gayla Schaefer Nurse: [place] Exercise Technologist: Katelynn Madrigal Summary 1. Exercise capacity very good at >10 METS. 2. No abnormal ST-T wave changes with maximal exercise. 3. Hypertensive response to exercise. Protocol: [place] Stress ECG Details Stage: REST Duration (min): 1 min : 12 sec Speed (mph): 0.0 Grade (%): 0 HR (bpm): 64 SBP (mmHg): --- DBP (mmHg): --- METS: --- Stage: STAGE 1 Duration (min): 1 min : 0 sec Speed (mph): 1.7 Grade (%): 10 HR (bpm): 96 SBP (mmHg): 144 DBP (mmHg): 87 METS: --- Stage: STAGE 1 Duration (min): 2 min : 0 sec Speed (mph): 1.7 Grade (%): 10 HR (bpm): 106 SBP (mmHg): 144 DBP (mmHg): 87 METS: --- Stage: STAGE 1 Duration (min): 3 min : 0 sec Speed (mph): 1.7 Grade (%): 10 HR (bpm): 99 SBP (mmHg): 143 DBP (mmHg): 77 METS: --- Stage: STAGE 2 Duration (min): 1 min : 0 sec Speed (mph): 2.5 Grade (%): 12 HR (bpm): 114 SBP (mmHg): 143 DBP (mmHg): 77 METS: --- Stage: STAGE 2 Duration (min): 2 min : 0 sec Speed (mph): 2.5 Grade (%): 12 HR (bpm): 117 SBP (mmHg): 163 DBP (mmHg): 85 METS: --- Stage: STAGE 2 Duration (min): 3 min : 0 sec Speed (mph): 2.5 Grade (%): 12 HR (bpm): 123 SBP (mmHg): 163 DBP (mmHg): 85 METS: --- Stage: STAGE 3 Duration (min): 1 min : 0 sec Speed (mph): 3.4 Grade (%): 14 HR (bpm): 137 SBP (mmHg): 219 DBP (mmHg): 86 METS: --- Stage: STAGE 3 Duration (min): 2 min : 0 sec Speed (mph): 3.4 Grade (%): 14 HR (bpm): 144 SBP (mmHg): 219 DBP (mmHg): 86 METS: --- Stage: STAGE 3 Duration (min): 3 min : 0 sec Speed (mph): 3.4 Grade (%): 14 HR (bpm): 149 SBP (mmHg): 219 DBP (mmHg): 86 METS: --- Stage: STAGE 4 Duration (min): 0 min : 53 sec Speed (mph): 4.2 Grade (%): 16 HR (bpm): 157 SBP (mmHg): 219 DBP (mmHg): 86 METS: --- Stage: RECOVERY Duration (min): 0 min : 6 sec Speed (mph): 1.5 Grade (%): 0 HR (bpm): 157 SBP (mmHg): 219 DBP (mmHg): 86 METS: --- Stage: RECOVERY Duration (min): 1 min : 6 sec Speed (mph): 0.0 Grade (%): 0 HR (bpm): 114 SBP (mmHg): 219 DBP (mmHg): 86 METS: --- Stage: RECOVERY Duration (min): 2 min : 6 sec Speed (mph): 0.0 Grade (%): 0 HR (bpm): 92 SBP (mmHg): 219 DBP (mmHg): 86 METS: --- Stage: RECOVERY Duration (min): 3 min : 6 sec Speed (mph): 0.0 Grade (%): 0 HR (bpm): 76 SBP (mmHg): 161 DBP (mmHg): 83 METS: --- Stage: RECOVERY Duration (min): 4 min : 6 sec Speed (mph): 0.0 Grade (%): 0 HR (bpm): 87 SBP (mmHg): 161 DBP (mmHg): 83 METS: --- Stage: RECOVERY Duration (min): 5 min : 6 sec Speed (mph): 0.0 Grade (%): 0 HR (bpm): 88 SBP (mmHg): 134 DBP (mmHg): 82 METS: --- Stage: RECOVERY Duration (min): 5 min : 32 sec Speed (mph): 0.0 Grade (%): 0 HR (bpm): 90 SBP (mmHg): 134 DBP (mmHg): 82 METS: --- Rest HR: 64 bpm Peak HR: 157 bpm Peak Sys BP: 219 mmHg Max Pred HR: 184 bpm % Max Pred HR: 85 % Target HR: 156 bpm Max RPP: 34,383 bpm*mmHg Barrientos Score: [address] Seg Deviation: 0.90 mm Total Time: 9 min : 53 sec Peak Irene BP: 86 mmHg Angina Score: None Total METS: 11.8 Resting ECG Sinus rhythm. Nonspecific T wave changes in I and aVL. Stress ECG No ischemic changes. Arrhythmias None. Report Signatures
--- NOTE | 2025-03-09 | ECHO_ITS ---
Patient Info Name: Muriel Peters Age: 34 years : 1990 Gender: Female Ht: 69 in Wt: 180 lbs BSA: 2.01 m2 HR: 45 bpm BP: 100 / 54 mmHg Technical Quality: Good Exam Date: 03/09/2025 10:59 AM Patient Status: O Admit Date: 03/08/2025 Exam Type: CA echo doppler color flow Complete two-dimensional, color flow and Doppler transthoracic echocardiogram is performed. Staff Referring Physician: Ananth Kevin MD Field Crop Harvest Contractor: Esvin Kimball III Attending Provider: Gayla Schaefer Summary 1. Complete two-dimensional, color flow and Doppler transthoracic echocardiogram is performed. 2. There is normal biventricular size and systolic function. 3. There is normal diastolic function. 4. There are no significant valvular abnormalities. Left Ventricle The left ventricle is normal in size and systolic function. There is mild concentric left ventricular hypertrophy. The left ventricular ejection fraction is visually estimated to be 60-65%. There is normal diastolic function. Right Ventricle The right ventricle is normal in size and systolic function. Left Atria The left atrium is normal size. Right Atria The right atrium is normal size. Atrial Septum The atrial septum is normal. Aortic Valve The aortic valve is trileaflet and opens well. There is no aortic regurgitation. Pulmonic Valve The pulmonic valve is normal. There is no pulmonic valve regurgitation. Mitral Valve The mitral valve is normal. There is no mitral regurgitation. Tricuspid Valve The tricuspid valve is normal. There is no tricuspid regurgitation. Pericardium/Pleural Pericardium is normal in appearance with no evidence for significant pericardial effusion. Inferior Vena Cava Dilated inferior vena cava with >50% collapse upon inspiration consistent with elevated right atrial pressure, 8 mmHg. Aorta The aortic root at the level of the sinus of Valsalva measures 3.0 cm in diameter. Left Ventricular Outflow Tract Name Value Normal LVOT 2D LVOT Diameter 2.2 cm LVOT Doppler LVOT Peak Velocity 114 cm/s LVOT Peak Gradient 5 mmHg LVOT Mean Gradient 3 mmHg LVOT VTI 27 cm LVOT VTI/AV VTI Ratio 0.9 LVOT Stroke Volume 106 ml LVOT CO 7.0 l/min LVOT CI 3.5 l/min/m2 Mitral Valve Name Value Normal MV Doppler MV Peak Gradient 3 mmHg MV Mean Gradient 2 mmHg MV Area (Cont Eq VTI) 4.5 cm2 MV Diastolic Function MV E Peak Velocity 94 cm/s MV A Peak Velocity 75 cm/s MV E/A 1.3 MV Decel Time (PW) 196 ms MV Annular TDI MV E/e' (Septal) 9.1 MV E/e' (Lateral) 6.4 MV E/e' (Average) 7.8 Tricuspid Valve Name Value Normal Estimated PAP/RSVP RA Pressure 8 mmHg <=5 TV Annular TDI TV Lateral Gilma s' Velocity 18.8 cm/s >=9.5 Aortic Valve Name Value Normal AV Doppler AV Peak Velocity 145 cm/s AV Peak Gradient 8 mmHg AV Mean Gradient 5 mmHg AV VTI 31 cm AV Area (Cont Eq VTI) 3.4 cm2 >=3.0 AV Area (Cont Eq Neri) 3.1 cm2 AV DI (Neri) 0.78 AV Regurgitation 2D LVOT Area 4.0 cm2 Ventricles Name Value Normal LV Dimensions 2D/MM IVS Diastolic Thickness (2D) 1.0 cm 0.6-1.0 LVID Diastole (2D) 5.1 cm 3.8-5.2 LVIW Diastolic Thickness (2D) 1.1 cm 0.6-0.9 LVID Systole (2D) 3.7 cm 2.2-3.5 LVOT Diameter 2.2 cm LV Mass (2D Cubed) 200.59 g 67.00-162.00 LV Mass Index (2D Cubed) 100 g/m2 43-95 Relative Wall Thickness (2D) 0.42 <=0.42 LV Fractional Shortening/Ejection Fraction 2D/MM LV Fractional Shortening (2D) 28 % 27-45 LV EF (2D Teichholz) 54 % LV Diastolic Volume (4C MOD) 108 ml LV EF (4C MOD) 61 % LV Diastolic Volume (2C MOD) 108 ml LV EF (2C MOD) 57 % LV Diastolic Volume (BP MOD) 109 ml 46-106 LV Diastolic Volume Index (BP MOD) 54 ml/m2 29-61 LV Systolic Volume (BP MOD) 44 ml 14-42 LV Systolic Volume Index (BP MOD) 22 ml/m2 8-24 LV EF (BP MOD) 59 % 54-74 LV Diastolic Length (4C) 8.8 cm LV Systolic Length (4C) 7.2 cm LV Stroke Volume (4C MOD) 66 ml Atria Name Value Normal LA Dimensions LA Volume (4C A-L) 65 ml LA Volume (BP A-L) 64 ml RA Dimensions RA Systolic Major [place] Length (4C) 5.8 cm 2.2-2.8 RA Area (4C) 19.9 cm2 <=18.0 Report Signatures
[2025-03-09] MEDS: SODIUM CHLORIDE 0.9% IV 1,000 ML 125 ML IV CONT (02:55)
[2025-03-09 04:39] LABS: Hematocrit 36.0 % (37.0-47.0); Hemoglobin 11.6 g/dL (12.0-15.0); Mean Corpuscular HGB Conc 32.2 g/dl (32-36); Mean Corpuscular Hemoglobin 29.1 pg (26-34); Mean Corpuscular Volume 90.5 fl (80-100); Platelet Count Result 177 k/mm3 (150-375); Red Blood Count 3.98 M/mm3 (4.2-5.4); White Blood Count 5.7 K/mm3 (4.5-10.0)
[2025-03-09 05:10] LABS: Alanine Aminotransferase 19 U/L (6-35); Albumin Level 3.4 g/dL (3.5-5.1); Alkaline Phosphatase 70 U/L (38-126); Anion Gap 2 mmol/L (4-12); Aspartate Amino Transferase 27 U/L (14-36); Bilirubin,Total 0.7 mg/dL (0.2-1.3); Blood Urea Nitrogen 11 mg/dL (7-17); Calcium 8.7 mg/dL (8.4-10.2); Carbon Dioxide 24 mmol/L (22-30); Chloride 110 mmol/L (98-107); Estimated CRCL calculation 86 ml/min; Estimated Glomerular Filt Rate > 60; Glucose 87 mg/dL (65-110); Magnesium 1.7 mg/dL (1.6-2.3); Potassium 4.2 mmol/L (3.4-5.0); Sodium 136 mmol/L (137-145); Total Protein 6.1 g/dL (6.3-8.2)
--- NOTE | 2025-03-09 08:42 | P.PNCA_ITS ---
Progress Note: A&P Assessment and Plan (1) Chest pain: Code(s): R07.9 - Chest pain, unspecified Status: Acute Assessment and Plan: Episode of atypical sounding chest pain which occurred while performing shoulder press. * Exercise ST performed this morning with no meaningful STTW changes noted during exercise. Official report to follow. * No chest pain * Echo ordered and pending * Discharge today if echo unremarkable (2) Palpitations: Code(s): R00.2 - Palpitations Status: Acute Assessment and Plan: Per report, HR 200bpm detected by Apple Watch and patient manual pulse check. Isolated occurrence with no recurrence. Perhaps SVT. * No tachyarrhythmias induced with exercise ST this morning * EKG, tele unremarkable * 30 day tele monitor at discharge Subjective Date/time seen: 03/09/25 08:42 Interval history: Cardiology follow up visit for chest pain, palpitations Date of service 03/09/2025: Feels well this morning, no chest pain. Underwent exercise stress test with favorable response - no chest pain, palpitaions, arrhythmias. She did become hypertensive with maximal exercise Review of Systems Review of Systems: All systems reviewed & are unremarkable except as noted in HPI and below Exam Const: General: comfortable and no acute distress HENMT: Face/Nose/Sinus: Normal nares present and no epistaxis Mouth: Yes moist mucous membranes Eyes: Sclera: sclerae normal Pupils: Equal, round and reactive pupils present Neck: Neck: supple and no JVD Resp: Effort & Inspection: normal respiratory effort Auscultation: clear to auscultation bilaterally and lung sounds not diminished Cardio: Rate: regular rate Rhythm: regular rhythm Heart sounds: no gallops, no murmurs and no rubs GI: Inspection: normal to inspection Skin: General skin exam: normal color, rashes and/or lesions noted and no erythema Other: Warm Neuro: Cranial nerves: Yes Equal, round and reactive pupils present Speech: normal speech Other: No obvious focal deficit or facial asymmetry Extrem: General: no edema Psych: Appearance: grossly normal Mental Status: mental status grossly normal Objective Data Vital Signs Vital Signs: Vital Signs - 24 hr 03/08/25 10:00 03/08/25 11:48 03/08/25 12:00 Temperature 37.0 C Pulse Rate 73 63 65 Respiratory Rate 16 16 Blood Pressure 113/57 L Pulse Oximetry 98 98 Oxygen Delivery Room Air 03/08/25 12:00 03/08/25 14:00 03/08/25 15:53 Temperature Pulse Rate 65 63 60 Respiratory Rate Blood Pressure Pulse Oximetry Oxygen Delivery Room Air 03/08/25 16:00 03/08/25 16:00 03/08/25 18:00 Temperature 36.7 C Pulse Rate 62 66 62 Respiratory Rate 16 Blood Pressure 110/62 Pulse Oximetry 98 Oxygen Delivery 03/08/25 20:00 03/08/25 20:00 03/08/25 22:00 Temperature 36.3 C L Pulse Rate 64 57 L 55 L Respiratory Rate 16 Blood Pressure 97/57 L Pulse Oximetry 97 Oxygen Delivery 03/09/25 00:00 03/09/25 00:00 03/09/25 02:00 Temperature 36.9 C Pulse Rate 52 L 56 L 56 L Respiratory Rate 16 Blood Pressure 101/44 L Pulse Oximetry 98 Oxygen Delivery 03/09/25 04:00 03/09/25 04:00 03/09/25 06:00 Temperature 36.4 C Pulse Rate 58 L 45 L 81 Respiratory Rate 16 Blood Pressure 100/54 L Pulse Oximetry 99 Oxygen Delivery 03/09/25 07:44 Temperature 36.8 C Pulse Rate 66 Respiratory Rate 18 Blood Pressure 113/65 Pulse Oximetry 100 Oxygen Delivery Intake/Output Intake/Output: Intake & Output 03/06/25 03/07/25 03/08/25 03/09/25 23:59 23:59 23:59 23:59 Intake Total 462 791.7 Output Total 400 Balance 62 791.7 Meds/Results Medications: Active Medications Generic Name Dose Route Start Last Admin Trade Name Adairq PRN Reason Stop Dose Admin Acetaminophen 650 mg 03/08/25 13:18 03/08/25 13:37 Acetaminophen 325 Mg Tablet PO 650 mg Q4H PRN Administration Headache Sodium Chloride 1,000 mls @ 125 mls/hr 03/08/25 03:55 03/09/25 02:55 Normal Saline Iv IV CONT 125 mls/hr .Q8H BRIANNE Administration Perflutren Lipid Microsphere 0 ml 03/08/25 07:58 Perflutren Lipid Microspheres 1.5 Ml Vial Diluted To 10 Ml Total Volume IV PU SH 03/11/25 07:58 ONCE PRN adequate visualization Protocol Radiology Results: ITS Impressions Chest X-Ray 03/08/25 06:42 IMPRESSION: 1. No acute cardiopulmonary findings. Labs Labs: Laboratory Results - last 24 hr 03/09/25 04:13 WBC 5.7 RBC 3.98 L Hgb 11.6 L Hct 36.0 L MCV 90.5 MCH 29.1 MCHC 32.2 RDW 12.5 Plt Count 177 MPV 10.4 Sodium 136 L Potassium 4.2 Chloride 110 H Carbon Dioxide 24 Anion Gap 2 L BUN 11 D Creatinine 0.82 Estim Creat Clear Calc 86 Estimated GFR > 60 Glucose 87 Calcium 8.7 Magnesium 1.7 Total Bilirubin 0.7 AST 27 ALT 19 Alkaline Phosphatase 70 Total Protein 6.1 L Albumin 3.4 L
--- NOTE | 2025-03-09 16:18 | PM.DS ---
DS: Admitting Diagnosis Discharge Date 03/10/25 Admitting Diagnosis Chest Pain DS: Discharge Diagnosis Discharge Diagnosis (1) Chest pain: Code(s): R07.9 - Chest pain, unspecified Status: Acute (2) Palpitations: Code(s): R00.2 - Palpitations Status: Acute Plan Currently denies any CP or palpitation, complaints of BRUCE, will give tylenol, to further evaluate will do treadmill exercise stress test in the morning, and cardia ECHO, seen by the staff genetic counselor and further recommendation to follow. DS: Summary Hospital Course Hospital Course: Currently denies any CP or palpitation, complaints of BRUCE, will give tylenol, to further evaluate will do treadmill exercise stress test in the morning, and cardia ECHO, seen by the staff genetic counselor and further recommendation to follow. patient 3 sets of cardiac enzymes are negative, cardiac echo is normal and Lexiscan is normal, seen by staff genetic counselor okay to discahrge her today. Time Spent with Patient Time attestation: Total time spent providing and/or coordinating discharge services: Exam Narrative: Patient is comfortable, NAD HEENT: eyes are clear and none icteric LUNGS:CTA HEART: RR S1S2 ABD: BS+, Soft and nontender Lower extremities: no edema SKIN: nonjaundiced Neuro: grossly intact. DS: Data Data Completed and Pending Labs on day of discharge: Labs from last 24 hours 03/09/25 04:13 WBC 5.7 RBC 3.98 L Hgb 11.6 L Hct 36.0 L MCV 90.5 MCH 29.1 MCHC 32.2 RDW 12.5 Plt Count 177 MPV 10.4 Sodium 136 L Potassium 4.2 Chloride 110 H Carbon Dioxide 24 Anion Gap 2 L BUN 11 D Creatinine 0.82 Estim Creat Clear Calc 86 Estimated GFR > 60 Glucose 87 Calcium 8.7 Magnesium 1.7 Total Bilirubin 0.7 AST 27 ALT 19 Alkaline Phosphatase 70 Total Protein 6.1 L Albumin 3.4 L Discharge Plan Discharge Attending physician on discharge: Gayla Schaefer Consulting providers: Jackelyn Hebert; Killian Dumont; Vijay Espinoza; Ancelmo Suarez; La Barbour; Flip Kitchen Discharging Clinician: Ananth Kevin Patient Disposition: Home Activity: as tolerated Diet: heart healthy Discharge Instructions: patient to follow up with her primary care provider as soon as possible, patient is instructed if any symptoms worsen to go to nearest ER Patient Instructions: Antibiotic Form, Chest Pain (DC), Cardiac Stress Test (GEN), Tachycardia (GEN) Patient Language: B[place] Stand Alone Forms: General Discharge Information Follow-up/Referrals: PHYSICIAN,TELECOMMUNICATIONS ENGINEER [Primary Care Provider, Internal Medicine] Discharge Medications: No Action No Home Medications Other Ambulatory Orders: [place] cardiac event monitor (Routine) Timeframe: 1 Month Location: [facility] [place] Cardiology Ordered By: La Barbour Date of admission: 03/08/25 03:53 Primary Care Provider: PHYSICIAN,TELECOMMUNICATIONS ENGINEER Admitting Provider: Gayla Schaefer Attending physician on admission: Ananth Kevin Condition: Stable
--- NOTE | 2025-03-09 17:21 | PC.NURSE ---
Patient discharged home in personal vehicle. IV removed intact. school lunch monitor removed. Reviewed all discharge instructions with patient. Denies questions at this time.
== END 2025-03-09 16:53 | disposition home or self-care (01) ==
LOC: ANHED 03-08 03:54 → ANHIMU 03-08 06:27
PROVIDERS: Admitting Provider General Practice; Emergency Provider Student in an Organized Health Care Education/Training Program; Visit Provider Family Medicine
DX: R07.9 Chest pain, unspecified (principal); R00.2 Palpitations; R51.9 Headache, unspecified
CPT/HCPCS: 36415; 71046; 80053; 83690; 83735; 83880; 84439; 84443; 84480; 84484; 85025; 85027; 85380; 85610; 85730; 93005; 93017; 93306; 96361; 96374; 99285; A9270; G0378; J2765; J7030